=== PATIENT | male | born 1935 | race African-American/Black ===

== ENCOUNTER 2019-10-22 09:35 | Outpatient (CLI) | payer MEDICARE ==
--- NOTE | 2019-10-22 11:52 | CT ---
CHEST CT WITHOUT CONTRAST: COMPARISON: 05/30/2019. HISTORY: Former tobacco use. Smoking. Coronary artery disease. FINDINGS: Limited evaluation of the mediastinum by the lack of IV contrast. No mediastinal mass, lymphadenopat hy, or hematoma. Normal heart size. No significant pericardial fluid. There is stable calcificatio n of the pericardium at the level of the left ventricle. Visualized aorta demonstrates atherosclerosis. Subdiaphragmatic structures demonstrate stable calcifications involving the body and tail of the panc reas. Hypoattenuation involving the right renal cortex, compatible with a simple cortical cyst measu ring 3.3 x 3.3 cm. There are calcifications of the gallbladder wall which are nonspecific. Trachea and central bronchi are patent. Pleural spaces: No pleural effusion. Lungs: Stable scarring involving both upper lobes. No consolidation with air bronchograms. Nodules: Right lung: No suspicious masses or nodules. Left lung: No suspicious masses or nodules. Osseous structures: No acute abnormality. IMPRESSION: 1. 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 No suspicious masses or consolidation. 2. Old pericardial hematoma with calcification, unchanged. 3. CT evidence of chronic pancreatitis. No evidence of acute pancreatic inflammation. POS: PPP
== END 2019-10-22 09:36 | disposition home or self-care (01) ==
LOC: NAV CT 09:35
PROVIDERS: ATTEND Internal Medicine Critical Care Medicine
DX: Z87.891 Personal history of nicotine dependence (principal); J84.10 Pulmonary fibrosis, unspecified; K86.1 Other chronic pancreatitis
CPT/HCPCS: 71250